=== PATIENT | male | born 1950 | race Caucasian/White ===

== ENCOUNTER → 2017-07-05 | Outpatient (CLI) | payer BC ==
--- NOTE | 2017-07-05 16:10 | KCIC ---
MRI Lumbar Spine without contrast History: Left foot drop in recent months, back injury previously Technique: Multiplanar, multi sequential noncontrast MR imaging was performed of the lumbar spine. Contrast: None Comparison: None Findings: There is generalized height loss of L4 not associated with significant marrow edema. There is straightening of the lumbar spine with mild reversal of the lordotic curvature centered at L3-4. There is grade 1 anterior spondylolisthesis L3-4. There is advanced degenerative disc disease L5-S1, minimally at L3-4, and mild disc desiccation at L4-5. L5-S1 endplate edema is likely reactive/degenerative in etiology, also minimally of the inferior, anterior endplate of L3. Conus terminates at L1-2. L1-L2: This level was not included on the axial images. Neural foramina and spinal canal are adequate. L2-L3: There is mild buckling of the ligamentum flavum and facet degenerative change. There is minimal narrowing of the far lateral recesses greater on the left. Neural foramina are adequate. L3-L4: There is mild facet degenerative change. There is minimal osseous retropulsion of the superior aspect of L4/disc osteophyte complex. There is overall moderate spinal stenosis including narrowing of the far lateral recesses bilaterally. There is minimal narrowing of the right neural foramen, left neural foramen adequate. L4-L5: There is mild facet hypertrophic change and buckling of the ligamentum flavum. There is minimal disc osteophyte complex and bulge. There is posterior annular tear. There is mild to moderate narrowing of the far lateral recesses greater on the left. There is [id number], left greater than right neural foramina compromise. L5-S1: There is minimal disc osteophyte complex and superimposed bulge/broad protrusion, near the descending S1 nerve roots greater on the left without significant displacement. Spinal canal is overall adequate. There is circumferential prominence of epidural fat. There is severe narrowing of the left neural foramen in part from disc osteophyte complex in combination with facet hypertrophic change with impingement of the exiting left L5 nerve root. There is also moderate to severe narrowing of the right neural foramen in part from disc osteophyte complex with contact exiting right L5 nerve root. Impression: 1. There is moderate to severe left greater than right L5-S1 neural foramina compromise with contact exiting L5 nerve roots. There is lesser degree of mild/moderate neural foramina compromise at L4-5. 2. There is old generalized height loss of the L4 vertebral body, minimal osseous retropulsion of the superior margin. 3. There is [id number] narrowing of the far lateral recesses greater on the left at L4-5, also moderate spinal stenosis at L3-4 with narrowing of the far lateral recesses bilaterally. 4. There is advanced degenerative disc disease L5-S1, minimally at L3-4. 5. There is grade 1 anterior spondylolisthesis L3-4. Electronically signed by: Ricardo Mccall MD (07/05/2017 4:07 PM) [id number]
== END | disposition home or self-care (01) ==
LOC: KCIC MRI 14:13
PROVIDERS: ATTEND Orthopaedic Surgery
DX: M21.372 Foot drop, left foot (principal); M51.37 Other intervertebral disc degeneration, lumbosacral region; M48.06 Spinal stenosis, lumbar region; M43.16 Spondylolisthesis, lumbar region
CPT/HCPCS: 72148

== ENCOUNTER → 2018-02-15 | Outpatient (CLI) | payer BC | END | disposition home or self-care (01) | LOC: KCIC CT 09:47 | DX: N20.0 Calculus of kidney (principal); K57.30 Diverticulosis of large intestine without perforation or abscess without bleeding | CPT/HCPCS: 74176 ==